=== PATIENT | male | born 1965 | race Caucasian/White ===

== ENCOUNTER 2021-07-08 07:38 | Day surgery (SDC) | payer BC, OTHER ==
[~2021-07-08 07:38] MED LIST: Midazolam 1 MG/ML 2 ML SDV ONE; Propofol 200 MG/20 ML SDV ONE; fentaNYL 100 MCG/2 ML SDV ONE
[2021-07-08] MEDS ORDERED: Sodium Chloride 0.9% 1,000 ML IV SCH (08:00)
[2021-07-08 08:35] LABS: CORONAVIRUS COVID-19 NAA NEGATIVE (NEGATIVE)
--- NOTE | 2021-07-08 10:10 | OR ---
DATE OF PROCEDURE: 07/08/2021 SURGEON: Juice Melara MD PROCEDURE: Colonoscopy. FINDINGS: Normal colonoscopy. PREOPERATIVE DIAGNOSIS: Screening colonoscopy. POSTOPERATIVE DIAGNOSIS: Screening colonoscopy. RISKS: Risks, benefits, alternatives, and limitations including, but not limited to, infection, bleeding, perforation, false positive, false negatives were explained to the patient, and they wished to proceed. PROCEDURE IN DETAIL: The patient was placed in left lateral decubitus position. Digital rectal exam was performed without abnormality. The scope was introduced and advanced atraumatically to the ileocecal valve. The scope was brought back to the ascending, transverse, descending colon, and retroflexed. No evidence of old or new blood. No masses. No polyps. No diverticulosis. No colitis. No abnormalities on retroflexion. Greater than 8 minutes was spent removing the scope. The prep was acceptable, approximately 90% of the luminal surface could be seen. The patient tolerated the procedure well. Juice Melara MD /[id number]
[2021-07-08 10:12] VITALS: BP 126/98; PULSE 68
== END 2021-07-08 10:15 | disposition home or self-care (01) ==
LOC: JP.SDS 07:38
PROVIDERS: ATTEND Surgery
DX: Z12.11 Encounter for screening for malignant neoplasm of colon (principal); J45.909 Unspecified asthma, uncomplicated; Z01.812 Encounter for preprocedural laboratory examination; Z20.822 Contact with and (suspected) exposure to COVID-19
CPT/HCPCS: 0241U; 45378; J2250; J2704; J3010; J7030